=== PATIENT | female | born 1930 | race Caucasian/White ===

== ENCOUNTER 2017-01-14 13:53 | Emergency (ER) | payer MEDICARE ==
--- NOTE | 2017-01-14 14:23 | ED ---
General Adult HPI - General Chief complaint: Chest Pain Stated complaint: Chest pain Time Seen by Provider: 01/14/17 14:18 Source: patient, RN notes reviewed, old records reviewed Mode of arrival: wheelchair Limitations: no limitations - History of Present Illness Initial comments: This is an 86-year-old female here for evaluation of chest pain. Patient sharp anterior chest pain with some indigestion prior to arrival. No nausea or vomiting. Patient does have history of high blood pressure but no history of heart disease. Patient has had a heart evaluation before which has been negative. She denies any fevers cough or congestion, no shortness of breath. Patient's chest pain resolved almost immediately and remained resolved prior to ER evaluation. - Related Data Home Medications Medication Instructions Recorded Confirmed Ramipril [Altace] 10 mg PO BID 03/14/14 01/14/17 Aspirin 325 mg PO HS 01/14/17 01/14/17 Cholecalciferol (Vitamin D3) 2,000 unit PO DAILY 01/14/17 01/14/17 [Vitamin D3] Simvastatin [Zocor] 5 mg PO HS 01/14/17 01/14/17 Allergies Allergy/AdvReac Type Severity Reaction Status Date / Time No Known Allergies Allergy Verified 01/14/17 14:21 Review of Systems ROS Statement: Those systems with pertinent positive or pertinent negative responses have been documented in the HPI. ROS Other: All systems not noted in ROS Statement are negative. Past Medical History Past Medical History: CVA/TIA, Hypertension Additional Past Medical History / Comment(s): change in bowel habits History of Any Multi-Drug Resistant Organisms: None Reported Past Surgical History: Breast Surgery Additional Past Surgical History / Comment(s): breast biopsies Past Anesthesia/Blood Transfusion Reactions: No Reported Reaction Past Psychological History: No Psychological Hx Reported Smoking Status: Never smoker Past Alcohol Use History: None Reported Past Drug Use History: None Reported General Exam Limitations: no limitations General appearance: alert, in no apparent distress Head exam: Present: atraumatic, normocephalic, normal inspection Eye exam: Present: normal appearance, PERRL, EOMI. Absent: scleral icterus, conjunctival injection, periorbital swelling ENT exam: Present: normal exam, mucous membranes moist Neck exam: Present: normal inspection. Absent: tenderness, meningismus, lymphadenopathy Respiratory exam: Present: normal lung sounds bilaterally. Absent: respiratory distress, wheezes, rales, rhonchi, stridor Cardiovascular Exam: Present: regular rate, normal rhythm, normal heart sounds. Absent: systolic murmur, diastolic murmur, rubs, gallop, clicks GI/Abdominal exam: Present: soft, normal bowel sounds. Absent: distended, tenderness, guarding, rebound, rigid Extremities exam: Present: normal inspection, full ROM, normal capillary refill. Absent: tenderness, pedal edema, joint swelling, calf tenderness Back exam: Present: normal inspection Neurological exam: Present: alert, oriented X3, CN II-XII intact Psychiatric exam: Present: normal affect, normal mood Skin exam: Present: warm, dry, intact, normal color. Absent: rash Course Vital Signs 01/14/17 13:59 Temperature 96.9 F L Pulse Rate 84 Respiratory 16 Rate Blood Pressure 171/79 O2 Sat by Pulse 95 Oximetry - Reevaluation(s) Reevaluation #1: 01/14/17 15:26 Patient remains without pain Reevaluation #2: 01/14/17 15:26 Normal stress test 2 years ago EKG Findings - EKG Comments: EKG Findings:: EKG shows normal sinus rhythm rate of 81, ME 138, QRS 116, QTC 448 Medical Decision Making - Medical Decision Making 82 for female in no chest pain. Patient has nonspecific chest pain. The resolved prior to arrival. Remains results are entire stay, patient consulted regarding the ER for an observation for evaluation by cardiology, patient is refusing at this time states she would like to go home - Lab Data Result diagrams: 01/14/17 14:10 01/14/17 14:10 Lab Results 01/14/17 01/14/17 01/14/17 Range/Units 14:10 14:10 14:10 WBC 10.9 H (3.8-10.6) k/uL RBC 4.67 (3.80-5.40) m/uL Hgb 14.4 (11.4-16.0) gm/dL Hct 42.4 (34.0-46.0) % MCV 90.7 (80.0-100.0) fL MCH 30.8 (25.0-35.0) pg MCHC 33.9 (31.0-37.0) g/dL RDW 12.8 (11.5-15.5) % Plt Count 185 (150-450) k/uL Neutrophils % 80 % Lymphocytes % 14 % Monocytes % 4 % Eosinophils % 1 % Basophils % 0 % Neutrophils # 8.7 H (1.3-7.7) k/uL Lymphocytes # 1.5 (1.0-4.8) k/uL Monocytes # 0.4 (0-1.0) k/uL Eosinophils # 0.1 (0-0.7) k/uL Basophils # 0.0 (0-0.2) k/uL PT (9.0-12.0) sec INR (<1.2) APTT (22.0-30.0) sec Sodium 139 (137-145) mmol/L Potassium 4.7 (3.5-5.1) mmol/L Chloride 106 (98-107) mmol/L Carbon Dioxide 24 (22-30) mmol/L Anion Gap 9 mmol/L BUN 20 H (7-17) mg/dL Creatinine 0.79 (0.52-1.04) mg/dL Est GFR (MDRD) Af Amer >60 (>60 ml/min/1.73 sqM) Est GFR (MDRD) Non-Af >60 (>60 ml/min/1.73 sqM) Glucose 110 H (74-99) mg/dL Calcium 9.7 (8.4-10.2) mg/dL Magnesium 2.0 (1.6-2.3) mg/dL Total Bilirubin 0.8 (0.2-1.3) mg/dL AST 60 H (14-36) U/L ALT 42 (9-52) U/L Alkaline Phosphatase 77 (38-126) U/L Total Creatine Kinase 53 (30-135) U/L CK-MB (CK-2) 1.2 (0.0-2.4) ng/mL CK-MB (CK-2) Rel Index 2.3 Troponin I <0.012 (0.000-0.034) ng/mL Total Protein 6.4 (6.3-8.2) g/dL Albumin 3.9 (3.5-5.0) g/dL 01/14/17 Range/Units 14:10 WBC (3.8-10.6) k/uL RBC (3.80-5.40) m/uL Hgb (11.4-16.0) gm/dL Hct (34.0-46.0) % MCV (80.0-100.0) fL MCH (25.0-35.0) pg MCHC (31.0-37.0) g/dL RDW (11.5-15.5) % Plt Count (150-450) k/uL Neutrophils % % Lymphocytes % % Monocytes % % Eosinophils % % Basophils % % Neutrophils # (1.3-7.7) k/uL Lymphocytes # (1.0-4.8) k/uL Monocytes # (0-1.0) k/uL Eosinophils # (0-0.7) k/uL Basophils # (0-0.2) k/uL PT 12.2 H (9.0-12.0) sec INR 1.2 H (<1.2) APTT 25.0 (22.0-30.0) sec Sodium (137-145) mmol/L Potassium (3.5-5.1) mmol/L Chloride (98-107) mmol/L Carbon Dioxide (22-30) mmol/L Anion Gap mmol/L BUN (7-17) mg/dL Creatinine (0.52-1.04) mg/dL Est GFR (MDRD) Af Amer (>60 ml/min/1.73 sqM) Est GFR (MDRD) Non-Af (>60 ml/min/1.73 sqM) Glucose (74-99) mg/dL Calcium (8.4-10.2) mg/dL Magnesium (1.6-2.3) mg/dL Total Bilirubin (0.2-1.3) mg/dL AST (14-36) U/L ALT (9-52) U/L Alkaline Phosphatase (38-126) U/L Total Creatine Kinase (30-135) U/L CK-MB (CK-2) (0.0-2.4) ng/mL CK-MB (CK-2) Rel Index Troponin I (0.000-0.034) ng/mL Total Protein (6.3-8.2) g/dL Albumin (3.5-5.0) g/dL - Radiology Data Radiology results: report reviewed (Chest x-ray is negative for acute disease), image reviewed Disposition Clinical Impression: Chest pain Disposition: ADMITTED IP TO THIS [facility] Condition: Fair Instructions: Chest Pain (ED) Referrals: Manjeet Hamilton MD [Primary Care Provider] - 1-2 days
[2017-01-14 14:31] LABS: Basophils % (A) 0 %; CH 29.6; CHCM 32.8; Eosinophils # (A) 0.1 k/uL (0-0.7); Eosinophils % (A) 1 %; HCT 42.4 % (34.0-46.0); HDW 2.26; HGB 14.4 gm/dL (11.4-16.0); Luc # (Auto) 0.11; Luc % (Auto) 1; Lymphocytes # (A) 1.5 k/uL (1.0-4.8); Lymphocytes % (A) 14 %; MCH 30.8 pg (25.0-35.0); MCHC 33.9 g/dL (31.0-37.0); MCV 90.7 fL (80.0-100.0); Mean Platelet Volume 7.3; Monocytes # (A) 0.4 k/uL (0-1.0); Monocytes % (A) 4 %; Neutrophils # (A) 8.7 k/uL (1.3-7.7); Neutrophils % (A) 80 %; RBC 4.67 m/uL (3.80-5.40); RDW 12.8 % (11.5-15.5); WBC 10.9 k/uL (3.8-10.6); WBC (Perox) 10.84
[2017-01-14 14:42] LABS: ALT 42 U/L (9-52); AST 60 U/L (14-36); Alkaline Phosphatase 77 U/L (38-126); Anion Gap 9 mmol/L; Blood Urea Nitrogen 20 mg/dL (7-17); Calcium 9.7 mg/dL (8.4-10.2); Carbon Dioxide 24 mmol/L (22-30); Chloride 106 mmol/L (98-107); Glucose 110 mg/dL (74-99); INR 1.2 (<1.2); Non-African American GFR(MDRD) >60 (>60 ml/min/1.73 sqM); Potassium 4.7 mmol/L (3.5-5.1); Prothrombin Time 12.2 sec (9.0-12.0); Sodium 139 mmol/L (137-145); Total Bilirubin 0.8 mg/dL (0.2-1.3); Total Protein 6.4 g/dL (6.3-8.2)
--- NOTE | 2017-01-14 14:43 | XR ---
EXAMINATION TYPE: XR chest 2V DATE OF EXAM: 01/14/2017 COMPARISON: NONE HISTORY: Shortness of breath TECHNIQUE: Frontal and lateral views of the chest are obtained. FINDINGS: Scattered senescent parenchymal changes noted. Hyperinflation compatible with COPD. Increased density right medial lung base could reflect developing infiltrate. Heart size is stable. Mediastinal structures are stable and grossly unremarkable. No evidence for hilar prominence. Degenerative changes dorsal spine. IMPRESSION: 1. Increased density right medial lung base could reflect developing infiltrate.
[2017-01-14 14:50] LABS: Creatine Kinase 53 U/L (30-135)
[2017-01-14 15:02] LABS: Creatine Kinase MB 1.2 ng/mL (0.0-2.4); Troponin I <0.012 ng/mL (0.000-0.034)
[2017-01-14 15:52] VITALS: BP 169/75; PULSE 82; RESP 18; TEMP 97.9
== END 2017-01-14 15:30 | disposition other institution (70) ==
LOC: EC 13:53
DX: R07.9 Chest pain, unspecified (principal); K30 Functional dyspepsia; I10 Essential (primary) hypertension; Z86.73 Personal history of transient ischemic attack (TIA), and cerebral infarction without residual deficits; Z79.82 Long term (current) use of aspirin; Z79.899 Other long term (current) drug therapy
CPT/HCPCS: 36415; 71020; 80053; 82550; 82553; 83735; 84484; 85025; 85610; 85730; 93005; 99285

== ENCOUNTER → 2017-02-04 | Outpatient (CLI) | payer MEDICARE ==
--- NOTE | 2017-02-05 08:30 | ECHOF ---
Referral Reason:R94.31 ABN EKG MEASUREMENTS -------- HEIGHT: 160.0 cm WEIGHT: 56.7 kg BP: IVSd: 1.4 cm (0.6 - 1.1) LVIDd: 3.0 cm (3.9 - 5.3) LVPWd: 1.2 cm (0.6 - 1.1) IVSs: 1.7 cm LVIDs: 1.9 cm LVPWs: 2.0 cm Ao Diam: 2.4 cm (2.0 - 3.7) AV Cusp: 0.9 cm (1.5 - 2.6) LA Diam: 2.9 cm (2.7 - 3.8) MV EXCURSION: 10.022 mm (> 18.000) MV EF SLOPE: 73 mm/s (70 - 150) EPSS: 0.6 cm MV E Tristan: 0.87 m/s MV DecT: 159 ms MV A Tristan: 1.06 m/s MV E/A Ratio: 0.82 AV maxP.28 mmHg AV meanP.89 mmHg RAP: 5.00 mmHg RVSP: 39.46 mmHg FINDINGS -------- Sinus rhythm. This was a technically good study. There is mild concentric left ventricular hypertrophy. Overall left ventricular systolic function is normal with, an EF between 55 - 60 %. The right ventricle is normal in size and function. The left atrium is normal in size. The right atrium is normal in size. Aortic valve is trileaflet and is moderately thickened. There is mild aortic stenosis present. Peak/mean gradient across the Aortic Valve is 22.28mmHg / 12.89mmHg. The mitral valve leaflets are mildly thickened. Mild mitral annular calcification present. Mild mitral regurgitation is present. Moderate to severe tricuspid regurgitation present. There is mild pulmonary hypertension. The right ventricular systolic pressure, as measured by Doppler, is 39.46mmHg. Pulmonic valve appears structurally normal. The aortic root size is normal. Normal inferior vena cava with normal inspiratory collapse consistent with estimated right atrial pressure of 5 mmHg. The pericardium is normal. CONCLUSIONS -------- 1. Sinus rhythm. 2. Peak/mean gradient across the Aortic Valve is 22.28mmHg / 12.89mmHg. 3. The mitral valve leaflets are mildly thickened. 4. Mild mitral annular calcification present. 5. Mild mitral regurgitation is present. 6. Moderate to severe tricuspid regurgitation present. 7. There is mild pulmonary hypertension. 8. The right ventricular systolic pressure, as measured by Doppler, is 39.46mmHg. 9. Pulmonic valve appears structurally normal. 10. The aortic root size is normal. 11. Normal inferior vena cava with normal inspiratory collapse consistent with estimated right atrial pressure of 5 mmHg. 12. This was a technically good study. 13. The pericardium is normal. 14. There is mild concentric left ventricular hypertrophy. 15. Overall left ventricular systolic function is normal with, an EF between 55 - 60 %. 16. The right ventricle is normal in size and function. 17. The left atrium is normal in size. 18. The right atrium is normal in size. 19. Aortic valve is trileaflet and is moderately thickened. 20. There is mild aortic stenosis present. [employer]ER: Ruth Vázquez RDCS
== END | disposition home or self-care (01) ==
LOC: RADECHMAIN 13:04
PROVIDERS: ATTEND Internal Medicine
DX: I08.1 Rheumatic disorders of both mitral and tricuspid valves (principal); I27.2 Other secondary pulmonary hypertension
CPT/HCPCS: 93306

== ENCOUNTER → 2017-03-07 | Outpatient (CLI) | payer MEDICARE ==
--- NOTE | 2017-03-09 07:33 | MM ---
Reason for exam: screening (asymptomatic). Last mammogram was performed 2 years and 2 months ago. History: Patient is postmenopausal. Family history of breast cancer in maternal aunt. Benign right mammotome panel of the right breast, March 10, 2011. Excisional biopsy of the left breast, December 05, 2006. Cancelled Left Mammotome of the left breast, December 02, 2006. Physical Findings: A clinical breast exam by your physician is recommended on an annual basis and results should be correlated with mammographic findings. MG 3D Screening Mammo W/Cad Bilateral CC and MLO view(s) were taken. Prior study comparison: January 17, 2015, bilateral MG screening mammo w CAD. April 11, 2013, bilateral digital screening mammo w/CAD. The breast tissue is heterogeneously dense. This may lower the sensitivity of mammography. Finding: There are typically benign vascular, dystrophic, round, grouped calcifications in both breasts. Previous mammotome biopsy in the right breast. There is a chronic nodularity in the left breast. There is no discrete abnormality. ASSESSMENT: Benign, BI-RAD 2 RECOMMENDATION: Routine screening mammogram of both breasts in 1 year.
== END | disposition home or self-care (01) ==
LOC: RADMAMWWP 11:13
PROVIDERS: ATTEND Internal Medicine
DX: Z12.31 Encounter for screening mammogram for malignant neoplasm of breast (principal); R94.31 Abnormal electrocardiogram [ECG] [EKG]
CPT/HCPCS: 77063; G0202

== ENCOUNTER → 2018-03-23 | Outpatient (CLI) | payer MEDICARE ==
--- NOTE | 2018-03-24 13:33 | MM ---
Reason for exam: screening (asymptomatic). Last mammogram was performed 1 year and 1 month ago. History: Patient is postmenopausal. Family history of breast cancer in maternal aunt. Benign right mammotome panel of the right breast, March 10, 2011. Excisional biopsy of the left breast, December 05, 2006. Cancelled Left Mammotome of the left breast, December 02, 2006. Physical Findings: A clinical breast exam by your physician is recommended on an annual basis and results should be correlated with mammographic findings. MG 3D Screening Mammo W/Cad Bilateral CC and MLO view(s) were taken. Prior study comparison: March 07, 2017, bilateral MG 3d screening mammo w/cad. January 17, 2015, bilateral MG screening mammo w CAD. The breast tissue is extremely dense which could obscure a lesion on mammography. Finding: There are stable typically benign vascular calcifications in both breasts. There is a chronic nodularity bilaterally. There is no dominant lesion. No significant changes in finding since March 07, 2017 and January 17, 2015. ASSESSMENT: Benign, BI-RAD 2 RECOMMENDATION: Routine screening mammogram of both breasts in 1 year.
== END | disposition home or self-care (01) ==
LOC: RADMAMWWP 15:17
PROVIDERS: ATTEND Internal Medicine
DX: Z12.31 Encounter for screening mammogram for malignant neoplasm of breast (principal)
CPT/HCPCS: 77063; 77067

== ENCOUNTER → 2018-03-24 | Outpatient (CLI) | payer MEDICARE ==
[~2018-03-24] MED LIST: DENOSUMAB 60 MG/ML 1 ML SYRINGE SQ ONE
[2018-03-24 13:33] VITALS: BP 120/58; PULSE 91; RESP 16; TEMP 97.5
== END ==
LOC: PROCWHC3 13:00
PROVIDERS: ATTEND Internal Medicine
DX: M81.0 Age-related osteoporosis without current pathological fracture (principal)
CPT/HCPCS: 96372; J0897

== ENCOUNTER → 2019-03-20 | Outpatient (CLI) | payer MEDICARE ==
--- NOTE | 2019-03-21 09:01 | US ---
EXAMINATION TYPE: US carotid duplex BILAT DATE OF EXAM: 03/20/2019 COMPARISON: NONE CLINICAL HISTORY: Z86.73 Personal history of TIA. Patient stated also had CVA. EXAM MEASUREMENTS: RIGHT: Peak Systolic Velocity (PSV) cm/sec ----- Right CCA: 48.8 ----- Right ICA: 60.7 ----- Right ECA: 33.2 ICA/CCA ratio: 1.2 RIGHT: End Diastole cm/sec ----- Right CCA: 11.1 ----- Right ICA: 20.0 ----- Right ECA: 0.0 LEFT: Peak Systolic Velocity (PSV) cm/sec ----- Left CCA: 57.8 ----- Left ICA: 66.5 ----- Left ECA: 43.8 ICA/CCA ratio: 1.2 LEFT: End Diastole cm/sec ----- Left CCA: 13.2 ----- Left ICA: 20.0 ----- Left ECA: 0.0 VERTEBRALS (direction of flow): Right Vertebral: Antegrade Left Vertebral: Antegrade Rhythm: Normal Mild intimal wall changes are noted at bilateral carotid bifurcations, but PSV is wnl bilaterally. In cidental findings noted of heterogeneous thyroid gland with thyroid nodules noted bilaterally. Grayscale, color Doppler, spectral Doppler imaging performed, waveform analysis does not show signifi cant stenosis of the internal carotid arteries IMPRESSION: No hemodynamic significant stenosis of the proximal internal carotid arteries zehra barba by Doppler criteria, an indirect measurement of carotid stenosis
== END | disposition home or self-care (01) ==
LOC: RADUSWWP 16:40
PROVIDERS: ATTEND Internal Medicine
DX: Z09 Encounter for follow-up examination after completed treatment for conditions other than malignant neoplasm (principal); Z86.73 Personal history of transient ischemic attack (TIA), and cerebral infarction without residual deficits
CPT/HCPCS: 93880

== ENCOUNTER → 2019-04-16 | Outpatient (CLI) | payer MEDICARE ==
[2019-04-16 12:58] VITALS: BP 121/63; PULSE 89; RESP 16; TEMP 98.3
== END | disposition home or self-care (01) ==
LOC: PROCWHC3 09:59
PROVIDERS: ATTEND Internal Medicine
DX: M81.0 Age-related osteoporosis without current pathological fracture (principal)
CPT/HCPCS: 96372; J0897

== ENCOUNTER → 2019-11-12 | Outpatient (CLI) | payer MEDICARE ==
[~2019-11-12] MED LIST changes: +DENOSUMAB 60 MG/ML 1 ML SYRINGE SQ NR; -DENOSUMAB 60 MG/ML 1 ML SYRINGE SQ ONE
[2019-11-12 11:20] VITALS: BP 146/86; PULSE 97; RESP 18; TEMP 97.7
== END | disposition home or self-care (01) ==
LOC: PROCWHC3 11:11
PROVIDERS: ATTEND Internal Medicine
DX: M81.0 Age-related osteoporosis without current pathological fracture (principal)
CPT/HCPCS: 96372; J0897

== ENCOUNTER → 2021-09-11 | Outpatient (CLI) | payer MEDICARE ==
[2021-09-11 13:05] VITALS: BP 146/84; PULSE 98; RESP 16; TEMP 97.5
== END | disposition home or self-care (01) ==
LOC: PROCWHC3 12:54
PROVIDERS: ATTEND Family Medicine
DX: M81.0 Age-related osteoporosis without current pathological fracture (principal)
CPT/HCPCS: 96372; J0897